=== PATIENT | male | born 1955 | race Two or more races ===

== ENCOUNTER 2018-12-26 14:02 | Emergency (ER) | payer MEDICAID ==
[~2018-12-26] VITALS: Ht 182.9 cm; Wt 77.0 kg
[2018-12-26] MEDS ORDERED: SODIUM CHLORIDE 0.9% 1,000 ML IV ONE (14:58)
[2018-12-26] MEDS ORDERED: LIDOCAINE HCL/PF 1% 10 MG/ML 5ML VIAL IJ ONE ×2 (15:00→20:00)
[2018-12-26] MEDS ORDERED: TETANUS, DIPHTHERIA, PERTUSSIS VAC/PF 0.5ML (>7YR OLD) IM ONE (15:00)
[2018-12-26] MEDS ORDERED: MORPHINE SULFATE 4 MG/ML CPJ (NOT FOR IM USE) IV ONE ×2 (15:00→17:15)
[2018-12-26] MEDS ORDERED: CEFAZOLIN 1000MG PREMIX 50 ML IV ONE (15:00)
[2018-12-26 15:52] LABS: BASOPHILS % 0.5 % (0.0-2.0); HEMATOCRIT. 31.8 % (42.0-52.0); HEMOGLOBIN. 10.1 g/dL (14.0-18.0); LYMPHOCYTES % 20.1 % (20.0-50.0); MEAN CORPUSCULAR HEMOGLOBIN 26.8 pg (28.0-32.0); MEAN CORPUSCULAR VOLUME 84.6 fL (80.0-94.0); MONOCYTES % 9.5 % (2.0-8.0); NEUTROPHILS % 69.9 % (40.0-76.0); PLATELET 269 x1000/uL (130-400); RED BLOOD CELL COUNT 3.75 mill/uL (4.7-6.1); RED CELL DISTRIBUTION WIDTH 15.5 % (11.6-14.6)
[2018-12-26 15:56] LABS: CHLORIDE 104 mEq/L (98-107)
[2018-12-26 22:30] VITALS: BP 150/74
[2018-12-26] MEDS ORDERED: HYDROCODONE/ACETAMINOPHEN 5/325MG TABLET PO ONE (22:30)
== END 2018-12-26 22:39 | disposition home or self-care (01) ==
LOC: ER 15:33
DX: S61.217A Laceration without foreign body of left little finger without damage to nail, initial encounter (principal); W27.8XXA Contact with other nonpowered hand tool, initial encounter; Y93.89 Activity, other specified; Y92.89 Other specified places as the place of occurrence of the external cause; Z23 Encounter for immunization
CPT/HCPCS: 12002; 36415; 73140; 80048; 85025; 90471; 90715; 96365; 96375; 96376; 99284; J0690; J2270; J3490; J7030; Z7610

== ENCOUNTER 2023-11-04 02:13 | Emergency (ER) | payer OTHER, MEDICAID ==
[~2023-11-04] VITALS: Ht 172.7 cm; Wt 65.0 kg
[2023-11-04 02:31] VITALS: BP 133/69; PULSE 68; RESP 16; TEMP 98.4; O2SAT 100
== END 2023-11-04 07:30 | disposition home or self-care (01) ==
LOC: ER 02:13
DX: R33.9 Retention of urine, unspecified (principal); R31.9 Hematuria, unspecified; J44.9 Chronic obstructive pulmonary disease, unspecified; I50.9 Heart failure, unspecified
CPT/HCPCS: 51702; 99284